=== PATIENT | female | born 2000 | race Caucasian/White ===

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

== ENCOUNTER 2018-05-24 12:33 | Emergency (ER) | payer OTHER ==
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
[2018-05-24 14:02] VITALS: BP 117/70
[2018-05-24] MEDS ORDERED: IBUPROFEN 600 MG TABLET PO ONE (14:06)
[2018-05-24] MEDS ORDERED: ACETAMINOPHEN 325 MG TABLET PO ONE (14:06)
== END 2018-05-24 14:20 | disposition home or self-care (01) ==
LOC: ER 12:33
DX: J02.9 Acute pharyngitis, unspecified (principal); M79.1 Myalgia
CPT/HCPCS: 87070; 87880; 99283